=== PATIENT | female | born 1985 | race Two or more races ===

== ENCOUNTER 2019-10-16 19:33 | Emergency (ER) | payer MEDICAID ==
[~2019-10-16] VITALS: Ht 160 cm; Wt 108.3 kg
[2019-10-16] MEDS ORDERED: CEPH500C5 PO (21:39)
[2019-10-16] MEDS ORDERED: gentamicin 0.1% topical ointment 15gm TP SCH (21:40)
[2019-10-16 22:04] VITALS: BP 106/71
== END 2019-10-16 22:05 | disposition home or self-care (01) ==
LOC: ER 19:34
DX: N61.1 Abscess of the breast and nipple (principal); F17.200 Nicotine dependence, unspecified, uncomplicated; F12.90 Cannabis use, unspecified, uncomplicated; Z79.899 Other long term (current) drug therapy
CPT/HCPCS: 99283

== ENCOUNTER 2023-10-09 20:21 | Emergency (ER) | payer MEDICAID ==
[~2023-10-09] VITALS: Ht 160 cm; Wt 94.1 kg
[2023-10-09 21:04] VITALS: BP 126/69; PULSE 84; RESP 18; O2SAT 98
[2023-10-09] MEDS ORDERED: IBUP-1985 PO (21:33)
[2023-10-09] MEDS ORDERED: AMOX-117 PO (21:33)
[2023-10-09 21:52] VITALS: TEMP 97.6
== END 2023-10-09 21:53 | disposition home or self-care (01) ==
LOC: ER 20:22
DX: K08.89 Other specified disorders of teeth and supporting structures (principal); F12.90 Cannabis use, unspecified, uncomplicated
CPT/HCPCS: 99283